=== PATIENT | male | born 1995 | race Caucasian/White ===

== ENCOUNTER 2019-12-09 18:01 | Emergency (ER) | payer OTHER ==
[~2019-12-09] VITALS: Ht 175.3 cm; Wt 90.0 kg
[2019-12-09] MEDS ORDERED: MELA3TAB82 PO (18:07)
[2019-12-09] MEDS ORDERED: IBUP-2759 PO (18:07)
[2019-12-09] MEDS ORDERED: IBUPROFEN 600 MG TABLET PO ONE (18:45)
[2019-12-09] MEDS ORDERED: SODIUM CHLORIDE 0.9% 250 ML IRRIG SOLUTION BOTTLE IRRIG ONE (18:45)
[2019-12-09] MEDS ORDERED: PERTUSS(ACELL),DIPH,TET VAC/PF 0.5 ML VIAL IM ONE (18:45)
[2019-12-09 19:57] VITALS: BP 117/63
== END 2019-12-09 20:08 | disposition home or self-care (01) ==
LOC: EMS 18:01
DX: S61.412A Laceration without foreign body of left hand, initial encounter (principal); F17.210 Nicotine dependence, cigarettes, uncomplicated; W26.0XXA Contact with knife, initial encounter; Y93.89 Activity, other specified; Y92.89 Other specified places as the place of occurrence of the external cause; Y99.8 Other external cause status
CPT/HCPCS: 12002; 90471; 90715